=== PATIENT | female | born 1955 | race Caucasian/White ===

== ENCOUNTER 2017-10-31 08:52 | Inpatient (IN) | payer BC ==
[2017-10-31] VITALS (15 sets, daily range): BP systolic 106–184; BP diastolic 32–106
[~2017-10-31] VITALS: Ht 165.1 cm; Wt 70.3 kg
[~2017-10-31 08:52] MED LIST: LISINOPRIL20 MG PO
[2017-10-31 09:16] LABS: ABSOLUTE BASOPHILS 0.1 thou/uL (0.0-0.2); ABSOLUTE LYMPHOCYTES 1.8 thou/uL (0.8-5.3); ABSOLUTE MONOCYTES 0.6 thou/uL (0.0-1.2); ABSOLUTE NEUTROPHILS 12.4 thou/uL (1.6-8.1); BASOPHILS 0.9 %; EOSINOPHILS 0.2 %; HEMATOCRIT 45.2 % (37.0-47.0); HEMOGLOBIN 15.4 gm/dL (12.0-15.0); LYMPHOCYTES 11.9 %; MCH 30.6 pg (26.0-34.0); MCHC 34.1 g/dL (28.0-37.0); MCV 89.7 fL (80.0-100.0); MONOCYTES 4.2 %; MPV 8.5 fl. (7.2-11.1); NUCLEATED RBCS 0 /100WBC; PLATELET COUNT* 343 thou/uL (150-400); POLYS 82.8 %; RBC 5.03 mil/uL (4.20-5.00); RDW-CV 13.2 % (10.5-14.5)
[2017-10-31 09:27] LABS: CALCIUM 9.8 mg/dL (8.5-10.1); POTASSIUM 3.6 mmol/L (3.5-5.1)
[2017-10-31 09:33] LABS: APTT 29.7 Seconds (25.0-31.3)
[2017-10-31 09:47] LABS: CK-MB MASS 38.3 ng/mL (<0.5-3.6); MAGNESIUM 1.8 mg/dL (1.8-2.4); TOTAL BILIRUBIN 0.3 mg/dL (<0.1-1.0); TOTAL PROTEIN 8.9 g/dL (6.4-8.2)
[2017-10-31 09:49] LABS: TROPONIN-I LEVEL 1.94 ng/mL (<0.06)
--- NOTE | 2017-10-31 11:03 | NUR ---
PT ADMITTED TO ROOM ICU 5 FROM PROGRAM COORDINATOR EXECUTIVE EDUCATION. PT A&OX4. ASSESSMENT CHARTED. ARTERIAL SHEATH IN PLACE. VSS. BLOOD PRESSURE ELEVATED. NO PAIN REPORTED AT THIS TIME. GROIN SITE CLEAN, DRY AND INTACT. WILL CONTINUE TO MONITOR.
--- NOTE | 2017-10-31 12:34 | CARD ---
[address] [address] CARDIAC CATH REPORT Name: ARA JUDGE Room: [address] IN ..#: [id number] Admission: 10/31/17 Attend Phys: Niraj Zhu MD Discharge: Date of : 57 Report #: [id number] THIS REPORT FOR: //name// APPROVED REPORT Patient Details Patient Status: ED Room #: The patient is a 62 year-old female Event Personnel Blake Smith Deck Supervisor, Brianna Jamil RN RN, Niraj Griggs Monitor, William Calderon Scrub Procedures Performed Left Heart Catheterization, Left Ventriculogram, PTCA with Stenting Indication STEMI (>0 to less than or equal to 6 hours), Dyspnea, Chest pain Risk Factors Hypercholesterolemia, Hypertension, Tobacco History () Admission/Lab Medications/Medications given during procedure Aspirin, Angiomax Drip IV 22.36 ml per hr, Angiomax IV 10 ml, Ticagrelor PO 180 mg Procedure Narrative A 6fr Ultimum Sheath sheath was inserted into the . Coronary angiography was performed using coronary diagnostic catheters. The right coronary system was accessed and visualized with a 6Fr JR4 catheter. The left coronary system was accessed and visualized with a 6Fr JL4 catheter. The left ventricle was accessed and visualized with a 6Fr pig catheter. The patient tolerated the procedure well and there were no complications associated with the procedure. Sheath was sutured in place to be removed in ICU at 1PM Intraoperative Conscious Sedation Fentanyl 25 mcg Dose: 2008 mGy Contrast Type and Amount: Visipaque 190 [place] [address] CARDIAC CATH REPORT Name: ARA JUDGE Room: [address] IN .R.#: [id number] Admission: 10/31/17 Attend Phys: Niraj Zhu MD Discharge: Date of : 57 Report #: [id number] The patient's coronary anatomy is co- dominant. Diagnostic Cath Left Main Patent vessel, with no flow-limiting lesions. LAD Moderate size caliber vessel, traveling down the anterior wall and wrapping around the apex. There is only mild disease in the mid segment, 20-30%. Circumflex Codominant vessel with mild disease in the distal segment, 20%. OM1 Patent vessel, with moderate disease in the proximal segment, 40%. OM2 100% occlusion at the proximal segment. After revascularization, this vessel extends down the inferolateral wall. Right Coronary Small size caliber vessel, with a moderate stenosis in the mid segment, 40%. R PDA Small size caliber vessel, with no flow-limiting lesions. Left Ventriculography The left ventricle is normal in size with decreased contractility. The left ventricular ejection fraction is estimated to be 45-50%. There is focal hypokinesis of the mid inferior segment. Hemodynamics The aortic pressure is 180/68 mmHg with a mean of 108 mmHg. The left ventricular pressure is 173/4 mmHg with a mean of mmHg. The left ventricular end diastolic pressure is 18 mmHg. PCI Technique Lesion Anticoagulation was achieved with Angiomax. Patient was preloaded with Ticagrelor PO 180 mg. Percutaneous coronary intervention was performed on the second obtuse marginal branch segment. The lesion stenosis prior to intervention was 100% with CHICHI 0 flow. A 6FR JL 4.0 Guide Catheter was used to engage the ostium. A Escapia: Luge Wire 180 Interventional Guidewire was used to cross the lesion. BALLOON DILATION A Balloon catheter Mini Trek RX 2.0 X 12 was inserted and inflated up to 4.00atm for 9seconds. Additional Inflation: 8.00atm for 21seconds. STENT DEPLOYMENT A stent Resolute RX 2.25X14 was inserted and inflated up to 8.00atm for 14seconds. Additional Inflation: 9.00atm for 47seconds. [place] [address] CARDIAC CATH REPORT Name: ARA JUDGE Room: [address] IN [facility].#: [id number] Admission: 10/31/17 Attend Phys: Niraj Zhu MD Discharge: Date of : 57 Report #: [id number] POST STENT DEPLOYMENT BALLOON DILATION A Balloon catheter NC Trek RX 2.25x12 was inserted and inflated up to 14.00atm for 26seconds. Final angiography reveals 0 % stenosis with CHICHI 3 flow. Conclusion 1. Successful insertion of a drug-eluting stent into a second obtuse marginal artery. 2. Mild to moderate disease in LAD and RCA. 3. Codominant system. 4. Mild segmental LV dysfunction. 5. Recommend dual antiplatelet therapy, aggressive risk factor management including cessation of tobacco. <ELECTRONICALLY SIGNED> By: Blake Smith MD 10/31/17 1233 1233 1233Blake Smith MD /INF
--- NOTE | 2017-10-31 19:47 | CON ---
[address] [address] CONSULTATION Name: ARA JUDGE Room: [address] IN M.R.#: [id number] Admission: 10/31/17 Attend Phys: Niraj Zhu MD Discharge: Date of : 57 Report #: [id number] THIS REPORT FOR: //name// CC: Jeremiah Oshea INDICATION: Chest pain. HISTORY OF PRESENT ILLNESS: This is a pleasant 62-year-old female with history of hypertension, hypercholesterolemia, tobacco use, presenting with chest pain. She woke up around 3:00 a.m. this morning with right-sided chest pain, radiating across the chest area. It diminished in intensity, but returned later on. She had some shortness of breath, but denies any diaphoresis or vomiting. She did feel some nausea in the ER. The ECG reveals sinus rhythm with slight ST elevation in leads II, III, aVF and V6 with small Q-waves and ST depression in V2, V3. PAST MEDICAL HISTORY: Denies diabetes. Positive for hypertension, cholesterol. ALLERGIES: None. MEDICATIONS: Please see MAR. SOCIAL HISTORY: Positive tobacco use, 1 pack per day. FAMILY HISTORY: Negative for premature CAD. REVIEW OF SYSTEMS: See HPI. PHYSICAL EXAMINATION: VITAL SIGNS: Stable. GENERAL APPEARANCE: A well-developed, well-nourished female, in no acute respiratory distress. HEAD AND EYES: Normocephalic. Sclerae are anicteric. ENT: Oral mucosa moist. NECK: Supple. LUNGS: Clear to auscultation. CARDIAC: Regular rate and rhythm, S1, S2 positive, no gallops. ABDOMEN: Soft, nontender. Bowel sounds positive. EXTREMITIES: No cyanosis, no edema. NEUROLOGIC: Alert and oriented x 3. LABORATORY VALUES: Pending. ECG reveals sinus rhythm, small Q-waves inferiorly with slight ST elevations in the inferior leads and V6, with ST depression in V2, [place] [address] CONSULTATION Name: NUJESUSARA Varun Room: [address] IN [facility]#: [id number] Admission: 10/31/17 Attend Phys: Niraj Zhu MD Discharge: Date of : 57 Report #: [id number] ASSESSMENTAND PLAN: 1. Rule out inferior wall myocardial infarction. The patient with persistent symptoms, treated with aspirin, nitroglycerin, morphine. The plan is to proceed with a cardiac catheterization. 2. Hypertension, continue medications. 3. Hypercholesterolemia, statin medication. 4. Tobacco use, complete smoking cessation is advised. <ELECTRONICALLY SIGNED> By: Blake Smith MD 10/31/17 1947 0943 1015Blake Smith MD /nt
[2017-11-01] VITALS (9 sets, daily range): BP systolic 101–122; BP diastolic 36–69
[2017-11-01 03:55] LABS: HEMATOCRIT 39.9 % (37.0-47.0); MCH 30.5 pg (26.0-34.0); MCHC 33.5 g/dL (28.0-37.0); MPV 8.5 fl. (7.2-11.1); RBC 4.38 mil/uL (4.20-5.00); RDW-CV 13.2 % (10.5-14.5); WBC 13.7 thou/uL (4.0-11.0)
[2017-11-01 04:13] LABS: HEMOGLOBIN 13.4 gm/dL (12.0-15.0)
[2017-11-01 04:22] LABS: ALBUMIN 3.1 g/dL (3.4-5.0); CALCIUM 8.7 mg/dL (8.5-10.1); CREATININE 1.1 mg/dL (0.6-1.3); POTASSIUM 4.1 mmol/L (3.5-5.1); TOTAL BILIRUBIN 0.4 mg/dL (<0.1-1.0); TOTAL PROTEIN 6.6 g/dL (6.4-8.2)
[2017-11-01 04:49] LABS: TROPONIN-I LEVEL 17.47 ng/mL (<0.06)
[2017-11-01 11:05] LABS: CHOLESTEROL 173 mg/dL (<200); HDL CHOLESTEROL 34 mg/dL (>40); LDL CHOLESTEROL 88 mg/dL (<100); SERUM ASSESSMENT Clear; TC:HDL 5.1 Ratio (Not establshd); TRIGLYCERIDE 257 mg/dL (<150); VLDL 51 mg/dL (<40)
--- NOTE | 2017-11-01 12:32 | EKG ---
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 : 1955 Requested By: Blake Smith Order Number: [id number] Reading MD: Preet Gamboa Measurements Intervals [place] Rate: 66 P: 64 CT: 153 QRS: 0 QRSD: 97 T: 33 QT: 438 QTc: 459 Interpretive Statements Sinus rhythm Inferior infarct, old Baseline wander in lead(s) V6 No previous ECG available for comparison Electronically Signed On 11-01-2017 12:32:18 ADOPTION WORKER by Preet Gamboa [email or web address] <ELECTRONICALLY SIGNED> By: Preet Gamboa MD, [facility] 11/01/17 1232 1136 113 Preet Gamboa MD, [facility] /EPI
--- NOTE | 2017-11-01 12:32 | EKG ---
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: Vaurn PAGE : 1955 Requested By: Hubert Oshea Order Number: [id number] MD: Preet Gamboa Measurements Intervals [place] Rate: 67 P: 62 IA: 139 QRS: 19 QRSD: 90 T: 71 QT: 389 QTc: 411 Interpretive Statements Sinus rhythm Atrial premature complex Inferior infarct, acute Probable RV involvement, suggest recording right precordial leads No previous ECG available for comparison Electronically Signed On 11-01-2017 12:32:04 HOTEL OR MOTEL MANAGER by Preet Gamboa [email or web address] <ELECTRONICALLY SIGNED> By: Preet Gamboa MD, FACC 11/01/17 1232 0857 0857 Preet Gamboa MD, [facility] /EPI
--- NOTE | 2017-11-01 12:32 | EKG ---
[place] [address] ELECTROCARDIOGRAM REPORT Name: ARA JUDGE Room: [address] ADM IN M.R.#: [id number] Admission: 10/31/17 Attend Phys: Niraj Zhu MD Discharge: Date of : 57 Report #: [id number] THIS REPORT FOR: //name// [facility] Test Date: 2017-10-31 Test Time: 12:46:11 Pat Name: ARA JUDGE Department: Room: [address] Gender: F Train Electronic Technician: imtiaz : 1955 Requested By: Blake Smith Order Number: [id number] Reading MD: Preet Gamboa Measurements Intervals [place] Rate: 63 P: 67 MO: 164 QRS: 2 QRSD: 99 T: 39 QT: 424 QTc: 435 Interpretive Statements Sinus rhythm Inferior infarct, old Baseline wander in lead(s) V5 No previous ECG available for comparison Electronically Signed On 11-01-2017 12:32:45 HARDWARE SALES ASSISTANT by Preet Gamboa [email or web address] <ELECTRONICALLY SIGNED> By: Preet Gamboa MD, [facility] 11/01/17 1232 1246 45 Preet Gamboa MD, [facility] /EPI
--- NOTE | 2017-11-01 12:34 | EKG ---
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 Operator: TIGRE : 1955 Requested By: Blake Smith Order Number: [id number] Reading MD: Preet Gamboa Measurements Intervals [place] Rate: 58 P: 22 MN: 147 QRS: 6 QRSD: 93 T: 20 QT: 424 QTc: 417 Interpretive Statements Sinus rhythm Abnormal R-wave progression, early transition Abnormal inferior Q waves Minimal ST elevation, inferior leads No previous ECG available for comparison Electronically Signed On 11-01-2017 12:34:01 ROOFING FOREMAN by Preet Gamboa [email or web address] <ELECTRONICALLY SIGNED> By: Preet Gamboa MD, [facility] 11/01/17 1234 0738 0738 Preet Gamboa MD, [facility] /EPI
--- NOTE | 2017-11-01 15:00 | NUR ---
PT TRANSFERED TO ROOM 207 VIA WHEELCHAIR WITH NURSING STAFF. PT ORIENTED TO ROOM. WILL CONTINUE TO MONITOR.
[2017-11-02] VITALS (7 sets, daily range): BP systolic 95–136; BP diastolic 42–94
--- NOTE | 2017-11-02 10:24 | NUR ---
ASSUMED CARES OF PT AT 0700. PT IN BED, BED IN LOW AND LOCKED POSITION, CALL BUTTON AND PERSONAL ITEMS IN PT REACH. PT USES CALL BUTTON APPROPRIATELY. FALL PRECAUTIONS MONITORED. PT A&O X4, BILLBOARD POSTER TRACING NSR. LCTAB, AFEBRILE, PERRLA, SKIN INTACT, SCATTERED BRUISING. PT STEADY GAIT, UP INDEPENDENTLY TO BATHROOM. RIGHT FA IV PATENT TO FLUSH. PT DENIES PAIN. RIGHT GROIN CATH SITE, BRUISED, SOFT TO TOUCH. CARDIO CLEARED PT FOR D/C HOME TODAY. PULSES WNL RADIAL AND PEDAL, CAP REFILL <3 SEC., NO EDEMA NOTED. WILL CONTINUE TO MONITOR PT PROGRESS AND STATUS AND PREPARE FOR DISCHARGE.
[2017-11-02] MEDS ORDERED: ASPIR 8181 MG PO (10:46)
[2017-11-02] MEDS ORDERED: LIPITOR40 MG PO (10:48)
[2017-11-02] MEDS ORDERED: COREG6.25 MG PO (10:51)
[2017-11-02] MEDS ORDERED: BRILINTA90 MG PO (10:59)
[2017-11-02] MEDS ORDERED: TYLENOL325 MG PO (11:01)
[2017-11-02] MEDS ORDERED: NITROGLYCERIN0.4 MG SUBLING (11:03)
[2017-11-02] MEDS ORDERED: ZESTRIL2.5 MG PO (11:08)
--- NOTE | 2017-11-02 12:36 | NUR ---
PT CLEARED FOR DISCHARGE. PT EDUCATED ON STROKE S/SX AND RISKS, DISCHARGE ORDERS, MED, PRECAUTIONS, FOLLOW UP APPTS. PRESCRIPTIONS GIVEN WITH EDUCATION CARE NOTES. ALL DOCUMENTS SIGNED. IV AND TELE REMOVED. PT ESCORTED BY NURSING STAFF WITH SPOUSE AND FAMILY MEMBER, AMBULATORY TO CAR AT FRONT OF HOSPITAL ALL PT BELONGINGS PACKED AND TAKEN BY FAMILY. 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 PT DISCHARGE COMPLETED AT 1226 TO HOME.
== END 2017-11-02 12:26 | disposition home or self-care (01) | DRG 246 ==
LOC: M.ERS 08:52 → M.CL 08:52 → M.ICU 09:35 → M.3W 09:35 → M.TBA-ER 09:35 → M.ICU 11:45 → M.3W 11-01 14:46
PROVIDERS: Family Medicine; Internal Medicine Cardiovascular Disease; ADMIT Internal Medicine
PROC: B2111ZZ Fluoroscopy of Multiple Coronary Arteries using Low Osmolar Contrast (ICD-10-PCS; principal; 2017-10-31)
PROC: 4A023N7 Measurement of Cardiac Sampling and Pressure, Left Heart, Percutaneous Approach (ICD-10-PCS; principal; 2017-10-31)
PROC: 027034Z Dilation of Coronary Artery, One Artery with Drug-eluting Intraluminal Device, Percutaneous Approach (ICD-10-PCS; principal; 2017-10-31)
PROC: B2151ZZ Fluoroscopy of Left Heart using Low Osmolar Contrast (ICD-10-PCS; principal; 2017-10-31)
DX: I21.3 ST elevation (STEMI) myocardial infarction of unspecified site (principal); I50.21 Acute systolic (congestive) heart failure; R65.10 Systemic inflammatory response syndrome (SIRS) of non-infectious origin without acute organ dysfunction; E03.9 Hypothyroidism, unspecified; I11.0 Hypertensive heart disease with heart failure; I25.5 Ischemic cardiomyopathy; E78.5 Hyperlipidemia, unspecified; Z90.710 Acquired absence of both cervix and uterus; M17.10 Unilateral primary osteoarthritis, unspecified knee; Z79.899 Other long term (current) drug therapy

== ENCOUNTER → 2017-11-10 | Outpatient (CLI) | payer BC ==
[~2017-11-10] MED LIST changes: +ASPIR 8181 MG PO; +BRILINTA90 MG PO; +COREG6.25 MG PO; +LIPITOR40 MG PO; +NITROGLYCERIN0.4 MG SUBLING; +TYLENOL325 MG PO; +ZESTRIL2.5 MG PO
== END ==
LOC: M.ULTRA 14:41
DX: R19.09 Other intra-abdominal and pelvic swelling, mass and lump (principal); R10.30 Lower abdominal pain, unspecified

== ENCOUNTER → 2020-12-31 | Outpatient (CLI) | payer OTHER | LOC: M.ULTRA 14:56 | PROVIDERS: ATTEND Family Medicine | DX: R92.2 Inconclusive mammogram (principal); N63.20 Unspecified lump in the left breast, unspecified quadrant ==